=== PATIENT | female | born 1985 | race Hispanic/Latino ===

== ENCOUNTER 2024-12-10 12:45 | Emergency (ER) | payer OTHER, SELFPAY ==
[2024-12-10 12:48] VITALS: BP 119/81; PULSE 63; RESP 18; TEMP 36; O2SAT 100; BMI 31.4
[2024-12-10 13:36] LABS: Mucous, Urine 0 SEEN /hpf (<or=2+)
[2024-12-10 13:55] LABS: Color, Urine Yellow (Yellow); Glucose, Dipstick Normal (Normal); Ketone-Dipstick Negative (Negative); Leukocyte Esterase-Dipstick 500 /ul (Negative); Nitrite-Dipstick Positive (Negative); Occult Blood-Urine 250 /ul (Negative); Protein-Dipstick 30 mg/dl (Negative); Specific Gravity, Urine 1.010 (1.002-1.030); Urine Bilirubin Dipstick Negative (Negative)
[2024-12-10 14:02] LABS: Internal QC Validated? YES +Cl - CLEAR BKGD; Red Blood Cells-Urine 50-100 SEEN /hpf (0-5); Squamous Epithelial Cells - UA 0-5 SEEN /hpf (5-10)
[2024-12-10 14:03] LABS: Pregnancy, Urine Negative Negative; Record Kit Lot#,Urine Preg 0000980607
[2024-12-10 14:45] VITALS: BP 118/78; PULSE 66; RESP 18; TEMP 36.6; O2SAT 100
--- NOTE | 2024-12-10 14:45 | ED.VIS.FEGU ---
HPI HPI - Female History of Present Illness Chief Complaint: Complaint Informant: patient Narrative Narrative: She reports associate suprapubic pain and low back pain. Denies any fever or chills. Denies any nausea or vomiting. Has abnormal vaginal discharge. States her last menstrual period is a couple weeks ago and denies concern for as she has Nexplanon. Denies any history of any recent antibiotic use or patient is a 39-year-old female, [place]-speaking, presenting with 3 days of dysuria. UTIs. Has tried [id number] aloe with no relief. Does not have a primary care doctor. Came in for further evaluation. Does report small amount of blood in her urine. Notes she had some mild diarrhea yesterday. Denies any other bowel symptoms. PFSH PFSH Home Medications ?Medication ?Instructions ?Recorded ?Last Taken ?Type nitrofurantoin 100 mg PO Q12H 5 days #10 caps 12/10/24 Unknown Rx monohydrate/macrocrystals 100 mg capsule (Macrobid) Allergy/AdvReac Type Severity Reaction Status Date / Time No Known Allergies Allergy Verified 12/10/24 12:48 Social History Smoking Status: Never smoker ROS ROS ED Constitutional Constitutional ED: Denies chills or fever(s) Respiratory/Chest Respiratory/Chest: Denies cough or dyspnea Gastrointestinal Gastrointestinal: Reports abdominal pain and diarrhea; Denies nausea or vomiting Genitourinary Genitourinary ED: Reports dysuria, hematuria and urinary frequency Musculoskeletal Musculoskeletal: Denies arthralgias or myalgias Integumentary Denies rash Neurologic Neurologic: Denies weakness EXAM Physical Exam Const Vital Signs: 12/10/24 12:48 12/10/24 14:45 12/10/24 14:57 Temperature 96.8 F L 98 F 98 F Temperature Source Temporal Oral Pulse Rate 63 66 66 Respiratory Rate 18 18 18 Blood Pressure 119/81 H 118/78 118/78 Blood Pressure Mean 93 91 91 Pulse Ox 100 100 100 Oxygen Delivery Method Room Air Room Air Positive well nourished and well developed General Appearance ED: well developed and NAD HEENT Reports moist mucous membranes Neck supple Chest Wall inspection of chest normal Resp normal respiratory effort and clear to auscultation bilaterally Cardio regular rate and regular rhythm GI normal to inspection, nondistended, normoactive bowel sounds and soft to palpation GI Narrative: Mild tenderness palpation in the suprapubic region Back/Spine no CVA tenderness Extremity normal to inspection Neuro oriented x3 Sensorium / Orientation: alert Motor Exam: Negative for general weakness Psych mental status grossly normal Skin no rashes or lesions noted MDM MDM MDM Narrative Medical decision making narrative: Patient evaluated 3 days of dysuria, suprapubic pain and small amount of hematuria. Denies any flank pain. Lower sufficient for pyelonephritis or kidney stone. Is otherwise well-appearing with no systemic symptoms. Urinalysis does show hematuria, elevated white blood cells and positive nitrates however no bacteria. Will send for culture and treat for UTI as she has nitrites and clinically her symptoms are consistent with UTI. Denies any vaginal symptoms lower suspicion for PID or tubo-ovarian abscess as a cause of her symptoms. She is overall well-appearing. Is given first dose in the emergency room. Given return precautions. Given outpatient follow-up information. Discharged home in stable condition. Formal wedding transportation driver used for interaction with patient. [place] language discharge instructions provided. Lab Data Labs: Laboratory Results - last 24 hr 12/10/24 13:35 Urine Color Yellow Urine Clarity Sl. Cloudy Urine pH 6.5 Ur Specific [place] 1.010 Urine Protein 30 H Urine Glucose (UA) Normal Urine Ketones Negative Urine Occult Blood 250 H Urine Nitrite Positive H Urine Bilirubin Negative Urine Urobilinogen Normal Ur Leukocyte Esterase 500 H Urine RBC 50-100 SEEN Urine WBC 25-50 SEEN Ur Squamous Epith Cells 0-5 SEEN Urine Bacteria 0 SEEN Urine Mucus 0 SEEN Urine Test Negative Discharge Plan Triage Chief Complaint: Complaint Other Complaint: Diarrhea ED Provider: Aurora Ortiz Dx/Rx/DC Orders Clinical Impression: UTI (urinary tract infection) Instructions: ED UTIs Women Prescriptions: New nitrofurantoin monohyd/m-cryst [Macrobid] 100 mg capsule 100 mg PO Q12H 5 Days Qty: 10 0RF Rx Instructions: must administer with a meal/food Primary Care Provider: Care Physician,No Primary Referrals: Gayle Campbell [Non-Staff, Medical] Care Physician,No Primary [Primary Care Provider, Medical] Print Language: Ken[place] Disposition Disposition: Home, Self Care Discharge Date/Time: 12/10/24 15:12
[2024-12-10 14:57] VITALS: BP 118/78; PULSE 66; RESP 18; TEMP 36.6; O2SAT 100
== END 2024-12-10 15:12 | disposition home or self-care (01) ==
PROVIDERS: Emergency Provider Emergency Medicine; Visit Provider Emergency Medicine
DX: N39.0 Urinary tract infection, site not specified (principal); R19.7 Diarrhea, unspecified
CPT/HCPCS: 81001; 81025; 87077; 87086; 87088; 87186; 99283